=== PATIENT | male | born 1945 | race Two or more races ===

== ENCOUNTER 2016-10-04 07:19 | Day surgery (SDC) | payer MEDICARE ==
[2016-10-04] MEDS ORDERED: PROPOFOL 10 MG/ML VIAL IV ONE (14:26)
[2016-10-04] MEDS ORDERED: LIDOCAINE 2% MDV (20MG/ML) 20ML VIAL IV ONE (14:26)
[2016-10-04] MEDS ORDERED: MIDAZOLAM HCL 2MG/2ML VIAL IV ONE (14:26)
--- NOTE | 2016-10-07 14:11 | Operative Note ---
DATE OF SURGERY: 10/04/2016 SURGEON: Zayra Olivia MD OPERATION: COLONOSCOPY. INDICATIONS: This is a 71-year-old male with average risk for colorectal cancer who presented for screening colonoscopy. POSTOPERATIVE DIAGNOSES: 1. Left-sided colonic diverticulosis. 2. A 3 mm sessile ascending colon polyp that was removed by cold biopsy forceps. 3. Two 3 mm sessile descending colon polyps that were removed by cold biopsy forceps. 4. A 3 mm sigmoid colon polyp that was removed cold biopsy forceps. 5. An 8 mm sessile polyp in the rectum that was removed by snare cautery. ANESTHESIA: Sedation is per Anesthesia. Pulse oximetry was monitored throughout the procedure to maintain O2 saturation of 90% or greater. Supplemental oxygen was administered via nasal cannula. Cardiac and vital signs were monitored throughout the duration of the procedure, and they were stable. The procedure of colonoscopy and risks and alternatives of the procedure, including the risk of bleeding and perforation, among others, were explained to the patient who voiced understanding and agreed to have the procedure done. Physical examination was performed, and the patient was found stable for sedation. PROCEDURE: The patient was placed in the left lateral position. Sedation was initiated. A digital rectal exam was performed and showed some mild external hemorrhoids with no palpable rectal masses. An Olympus PCF-180AL colonoscope was then inserted into the rectum under direct visualization. It was advanced to the cecum without difficulty. The ileocecal valve and appendiceal orifice were identified and photographed. The colonic mucosa was carefully examined upon introduction of the colonoscope. There were scattered diverticula noted in the sigmoid and descending colon. In the ascending colon was a 3 mm sessile polyp that was noted and was removed by cold biopsy forceps. The colonoscope was then withdrawn while carefully examining the colonic mucosal surfaces. The cecum, the rest of the ascending colon, and transverse colon mucosa appeared normal. In the descending colon were two 3 mm sessile polyps that were noted and removed by cold biopsy forceps. The colonoscope was then withdrawn farther into the sigmoid colon where a 3 mm sessile polyp was noted and was removed by cold biopsy forceps. The colonoscope was then withdrawn farther into the rectum and an 8 mm sessile flat polypoid lesion was noted and was removed by snare cautery. The colonoscope was then retroflexed and grade 1 internal hemorrhoids were noted. There were no other lesions noted. The colonoscope was then withdrawn and the procedure was terminated. The patient tolerated the procedure well without any immediate complications. He remained with stable vital signs and was transferred to the recovery room. RECOMMENDATIONS: 1. The patient should be on a high-fiber diet. 2. The patient is to have a repeat colonoscopy for surveillance in 3 or 5 years depending on the histology of the polyps. Thank you for allowing me to participate in the care of your patient. Zayra Olivia MD CC: Peggy LOVELL
== END 2016-10-04 10:06 | disposition home or self-care (01) ==
LOC: HOP 07:19
PROVIDERS: ATTEND Internal Medicine Gastroenterology
DX: Z12.11 Encounter for screening for malignant neoplasm of colon (principal); D12.5 Benign neoplasm of sigmoid colon; D12.4 Benign neoplasm of descending colon; D12.2 Benign neoplasm of ascending colon; K62.1 Rectal polyp; I10 Essential (primary) hypertension; E11.9 Type 2 diabetes mellitus without complications; Z79.84 Long term (current) use of oral hypoglycemic drugs; E78.00 Pure hypercholesterolemia, unspecified